=== PATIENT | female | born 1985 | race African-American/Black ===

== ENCOUNTER 2016-09-11 01:12 | Emergency (ER) | payer MEDICAID ==
[~2016-09-11] VITALS: Ht 175.3 cm; Wt 130.0 kg
[2016-09-11 01:14] VITALS: BP 172/92; PULSE 85; RESP 16; TEMP 98.2; O2SAT 99
[2016-09-11] MEDS ORDERED: birthcontrol (01:29)
--- NOTE | 2016-09-11 01:44 | PD ---
HPI Chief Complaint: Oral / Dental Pain or Problem Time Seen by Provider: 01:40 Travel History International Travel<30 days: No Contact w/Intl Traveler<30days: No Traveled to known affect area: No History of Present Illness HPI 31-year-old black female presents to emergency department complaints of dental pain. She states that she's had pain in her right lower molar with pain up into her right ear. She states that this of burn present now for the past day or so. Pain is getting progressively worse. No fever chills. No difficulty swallowing. PFSH Past Medical History Narrative Medical Asthma Asthma: Yes Tetanus Vaccination: < 5 Years ?: Not LMP: CONTROL Past Surgical History Surgical History: No Previous Surgery Social History Alcohol Use: No Tobacco Use: No Substance Use: No Allergies-Medications (Allergen,Severity, Reaction): Coded Allergies: Aspirin (Verified Allergy, Intermediate, EDEMA AND HIVES, 09/11/16) Reported Meds & Prescriptions Reported Meds & Active Scripts Active Reported [birthcontrol] Review of Systems Except as stated in HPI: all other systems reviewed are Neg General / Constitutional: No: Fever, Chills HENT: Positive: Dental Difficulties, Earache, No: Headaches, Sore Throat, Gingival Bleeding, Ear Discharge Cardiovascular: No: Chest Pain or Discomfort, Palpitations Physical Exam Narrative GENERAL: Well-developed, well-nourished in no acute distress. Nontoxic appearing. HEAD: Normocephalic, atraumatic. EYES: Pupils equal round and reactive. Extraocular motions intact. No scleral icterus. No injection or drainage. ENT: TMs clear without erythema. The external auditory canals clear. Nose: clear . Posterior pharynx is pink and moist. No tonsillar edema or exudate. Uvula midline. Airway patent. The patient has a large dental carry in tooth # 31. There is no gingival erythema or edema. NECK: Trachea midline.Supple, nontender, moves head freely. No central bony tenderness or spasm. CARDIOVASCULAR: Regular rate and rhythm without murmurs, gallops, or rubs. RESPIRATORY: Clear to auscultation. Breath sounds equal bilaterally. No wheezes , rales, or rhonchi. GASTROINTESTINAL: Abdomen soft, non-tender, nondistended. No hepato-splenomegaly , or palpable masses. No guarding. EXTREMITIES: No clubbing, cyanosis, or edema. No joint tenderness, effusion, or edema noted. BACK: Nontender without deformity or crepitance. No flank tenderness. Data Data Last Documented VS Vital Signs Date Time Temp Pulse Resp B/P Pulse Ox O2 Delivery O2 Flow Rate FiO2 09/11/16 01:14 98.2 85 16 172/92 99 Room Air MDM Medical Decision Making Medical Screen Exam Complete: Yes Emergency Medical Condition: Yes Medical Record Reviewed: Yes Differential Diagnosis MDM: Moderate Differential diagnoses: Dental abscess, dental caries, osteitis, cellulitis Narrative Course This is dental caries, dentalgia. Patient given amoxicillin 500 mg and Lortab 5 a grams by mouth Diagnosis Primary Impression: Dental caries Additional Impression: Dentalgia Patient Instructions: Narcotic given in the ED, General Instructions Additional Instructions: Rest. Saltwater gargles. Totz oil on cotton balls. Amoxicillin and Ultram. follow-up with a dentist as soon as possible. And return to the ER if any problems. Med/Other Pt SpecificInfo: Prescription(s) given Disposition: 01 DISCHARGE HOME Condition: Stable Bhupinder Anand Sep 11, 2016 01:44
[2016-09-11] MEDS ORDERED: AMOX500C PO (01:45)
[2016-09-11] MEDS ORDERED: ULTR50TA5 PO (01:45)
[2016-09-11] MEDS ORDERED: ACETAMINOPHEN/HYDROcodone 325 MG/5 MG TAB PO ONE (01:45)
[2016-12-18] MEDS ORDERED: CLIN1CAP5 PO (00:10)
[2016-12-18] MEDS ORDERED: IBUP-232 PO (00:53)
== END 2016-09-11 02:05 | disposition home or self-care (01) ==
LOC: NED 01:12 → NEPB 02:05
DX: K02.9 Dental caries, unspecified (principal)
CPT/HCPCS: 99282